=== PATIENT | female | born 1955 | race Caucasian/White ===

== ENCOUNTER 2016-11-14 19:29 | Emergency (ER) | payer BC, OTHER ==
[~2016-11-14] VITALS: Ht 170.2 cm; Wt 81.6 kg
[~2016-11-14 19:29] MED LIST: LEVA500T33 PO; METR-1 PO; OMEP20TA39 PO; PROM25SU8 PO; URSO300 PO
[2016-11-14 19:34] VITALS: BP 145/77; PULSE 87; RESP 18; TEMP 98.6; O2SAT 95
== END 2016-11-14 19:37 | disposition left against medical advice (07) ==
LOC: PHED 19:29
DX: R50.9 Fever, unspecified (principal)
CPT/HCPCS: 99281